=== PATIENT | female | born 1955 | race Caucasian/White ===

== ENCOUNTER 2021-11-16 01:28 | Inpatient (IN) | payer MEDICARE, OTHER ==
[~2021-11-16] VITALS: Ht 162.6 cm; Wt 73.7 kg
[~2021-11-16 01:28] MED LIST: ALENDRONATE SOD10 MG PO; CALCIUM500 MG PO; HYDROCHLOROTHIA25 MG PO; NORCO 5-325 TA1 EACH PO; OMEPRAZOLE20 MG PO; PROTONIX40 MG PO; VICODIN 5-5001 EACH PO; VITAMIN D310 MC1 PO
[2021-11-16] MEDS ORDERED: ALENDRONATE SOD70 MG PO (15:22)
[2021-11-18] MEDS ORDERED: SUCRALFATE1 GM PO (15:01)
== END 2021-11-18 15:37 | disposition home or self-care (01) | DRG 684 ==
LOC: ED 01:28 → MS 01:30
PROVIDERS: ADMIT Internal Medicine; ATTEND Internal Medicine
DX: N17.9 Acute kidney failure, unspecified (principal); Z20.822 Contact with and (suspected) exposure to COVID-19; K29.00 Acute gastritis without bleeding; K20.90 Esophagitis, unspecified without bleeding; E87.6 Hypokalemia; K75.9 Inflammatory liver disease, unspecified; R82.71 Bacteriuria; M81.0 Age-related osteoporosis without current pathological fracture; K21.9 Gastro-esophageal reflux disease without esophagitis; F17.210 Nicotine dependence, cigarettes, uncomplicated; Z98.890 Other specified postprocedural states; Z98.891 History of uterine scar from previous surgery; Z88.0 Allergy status to penicillin; Z79.899 Other long term (current) drug therapy
CPT/HCPCS: 36415; 74176; 80048; 80053; 80076; 81001; 82248; 82565; 82570; 83690; 83735; 84300; 84520; 84550; 85025; 87088; 87502; 96361; 96374; 96375; 99285-25; A9270; C9113; C9803; J1650; J2270; J2405; J3480; J7030; J7121; U0003

== ENCOUNTER 2024-12-26 19:33 | Emergency (ER) | payer MEDICARE, OTHER ==
[~2024-12-26] VITALS: Ht 162.6 cm; Wt 80.0 kg
[~2024-12-26 19:33] MED LIST changes: +ALENDRONATE SOD70 MG PO; +SUCRALFATE1 GM PO
[2024-12-26] MEDS ORDERED: KETOROLAC TROMETHAMINE 60 MG/2 ML VIAL IM ONE (20:00)
[2024-12-26] MEDS ORDERED: HYDROCODON-ACE1 EA10 PO (20:53)
[2024-12-26] MEDS ORDERED: HYDROCODONE BIT/ACETAMINOPHEN 5/325 MG 1 TAB HOME.PACK PO ONE (21:00)
[2024-12-26 21:24] VITALS: BP 129/48
== END 2024-12-26 21:24 | disposition home or self-care (01) ==
LOC: ED 19:33
DX: S92.331A Displaced fracture of third metatarsal bone, right foot, initial encounter for closed fracture (principal); S92.341A Displaced fracture of fourth metatarsal bone, right foot, initial encounter for closed fracture; S92.351A Displaced fracture of fifth metatarsal bone, right foot, initial encounter for closed fracture; I10 Essential (primary) hypertension; K21.9 Gastro-esophageal reflux disease without esophagitis; F17.200 Nicotine dependence, unspecified, uncomplicated; W01.0XXA Fall on same level from slipping, tripping and stumbling without subsequent striking against object, initial encounter; Z88.0 Allergy status to penicillin
CPT/HCPCS: 73630; 96372; 99283; A9270; J1885